=== PATIENT | male | born 1985 | race African-American/Black ===

== ENCOUNTER 2018-05-14 11:09 | Emergency (ER) | payer SELFPAY ==
[~2018-05-14] VITALS: Ht 185.4 cm; Wt 77.1 kg
[2018-05-14] MEDS ORDERED: ZOFRAN4 MG PO (11:25)
[2018-05-14] MEDS ORDERED: NAPROSYN500 MG PO (11:25)
[2018-05-14] MEDS ORDERED: Peridex 473 ML473 ML PO (11:25)
[2018-05-14 11:30] LABS: BILIRUBIN NEGATIVE (NEGATIVE); BLOOD NEGATIVE (NEGATIVE); CLARITY CLEAR (CLEAR); COLOR YELLOW (YELLOW); GLUCOSE NEGATIVE (NEGATIVE); KETONE NEGATIVE (NEGATIVE); LEUKO ESTERASE NEGATIVE (NEGATIVE); NITRITE NEGATIVE (NEGATIVE); SPECIFIC GRAVITY 1.025 (1.005-1.030); UROBILINOGEN 0.2 E.U./dl (0.2-1.0)
[2018-05-14 11:45] LABS: BACTERIA TRACE; EPITHELIAL CELLS 0-2; MUCOUS TRACE
[2018-05-14] MEDS ORDERED: PENICILLIN VK500 MG PO (11:55)
[2018-05-16 11:07] LABS: GONOCOCCUS BY NAA Negative (Negative)
== END 2018-05-14 12:25 | disposition home or self-care (01) ==
LOC: ED 11:09
PROVIDERS: Nurse Practitioner Family
DX: K02.9 Dental caries, unspecified (principal); R30.0 Dysuria; F17.200 Nicotine dependence, unspecified, uncomplicated

== ENCOUNTER 2019-07-17 17:38 | Emergency (ER) | payer SELFPAY ==
[~2019-07-17] VITALS: Ht 185.4 cm; Wt 72.6 kg
[~2019-07-17 17:38] MED LIST: NAPROSYN500 MG PO; PENICILLIN VK500 MG PO; Peridex 473 ML473 ML PO; ZOFRAN4 MG PO
[2019-07-17] MEDS ORDERED: AMOXICILLIN500 M2 PO (18:12)
[2019-07-17] MEDS ORDERED: IBUPROFEN600 MG PO (18:12)
== END 2019-07-17 18:23 | disposition home or self-care (01) ==
LOC: ED 17:38
DX: K02.9 Dental caries, unspecified (principal)

== ENCOUNTER → 2021-09-08 | Outpatient (CLI) | payer OTHER ==
[~2021-09-08] MED LIST changes: +AMOXICILLIN500 M2 PO; +IBUPROFEN600 MG PO
[2021-09-08 07:50] LABS: BASO # 0.1 10*3/uL (0.0-0.1); BASO % 0.9 % (0.0-1.0); EOS # 0.2 10*3/uL (0.0-0.4); EOS % 2.2 % (1.0-4.0); HEMATOCRIT 40.7 % (42.0-52.0); LYMPH % 29.7 % (27.0-41.0); MEAN CELL VOLUME 89.5 fl (80.0-94.0); MEAN CORPUSCULAR HGB 32.3 pg (27.0-31.0); MEAN CORPUSCULAR HGB CONC 36.1 g/dl (33.0-37.0); MONO # 0.4 10*3/uL (0.1-1.0); MONO % 6.3 % (3.0-9.0); NEUT # 4.2 10*3/uL (2.3-7.9); NEUT % 60.8 % (47.0-73.0); PLATELET COUNT AUTOMATED 226 10*3/uL (130-400); RED BLOOD COUNT 4.55 10*6/uL (4.50-5.90); RED CELL DISTRI WIDTH 12.1 % (0-14.5); WHITE BLOOD COUNT 6.8 10*3/uL (4.8-10.8)
[2021-09-08 08:07] LABS: ALKALINE PHOSPHATASE 49 U/L (45-117); BUN 9 mg/dl (7-24); CHLORIDE 109 mmol/L (98-107); CREATININE 1.06 mg/dL (0.70-1.30); FREE T4 0.97 ng/dl (0.76-1.46); POTASSIUM 3.6 mmol/L (3.5-5.1); SGOT/AST 24 IU/L (3-35); SGPT/ALT 34 U/L (12-78); SODIUM 140 mmol/L (136-145); TOTAL PROTEIN 7.7 gm/dL (6.4-8.2)
[2021-09-09 08:08] LABS: HEPATITIS B SURFACE AG Negative (Negative)
== END | disposition home or self-care (01) ==
LOC: LAB 07:17
PROVIDERS: ATTEND Internal Medicine
DX: Z11.3 Encounter for screening for infections with a predominantly sexual mode of transmission (principal); R10.9 Unspecified abdominal pain; K21.9 Gastro-esophageal reflux disease without esophagitis; Z79.899 Other long term (current) drug therapy; Z11.59 Encounter for screening for other viral diseases; Z72.89 Other problems related to lifestyle